=== PATIENT | female | born 1970 ===

== ENCOUNTER 2025-05-02 11:27 | Emergency (ER) | payer OTHER | END 2025-05-02 12:30 | LOC: LL.ED 11:27 | DX: H66.001 Acute suppurative otitis media without spontaneous rupture of ear drum, right ear (principal); E78.00 Pure hypercholesterolemia, unspecified; I10 Essential (primary) hypertension; F17.210 Nicotine dependence, cigarettes, uncomplicated; I25.10 Atherosclerotic heart disease of native coronary artery without angina pectoris; Z79.899 Other long term (current) drug therapy; Z79.82 Long term (current) use of aspirin | CPT/HCPCS: 99283 ==